=== PATIENT | female | born 1970 | race Caucasian/White ===

== ENCOUNTER 2023-08-11 15:46 | Emergency (ER) | payer OTHER ==
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
[2023-08-11] MEDS ORDERED: MORPHINE 4 MG/ML SYR ONE (17:19)
[2023-08-11] MEDS ORDERED: PROMETHAZINE 25 MG TABLET ONE (17:19)
--- NOTE | 2023-08-11 17:20 | RAD REPORT ---
EXAM DESCRIPTION: RAD - Forearm Left - 08/11/2023 4:58 pm CLINICAL HISTORY: PAIN COMPARISON: No comparisons TECHNIQUE: Left forearm, single-view. FINDINGS: No fracture is identified. There is no dislocation or periosteal reaction noted. Mild degenerative changes at the thumb base. Reactive screw hardware fixation of the ulna. The most distal screw is not fully inserted into the julio c ne, with no appreciable distal tract. Acuity of this finding cannot be determined. No foreign body or other soft tissue abnormality. Evaluation for elbow joint effusions is limited i n the absence of a lateral view. IMPRESSION: No acute osseous abnormality. Findings as above.
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
[2023-08-11] MEDS ORDERED: cloNIDine HCL 0.1 MG TAB ONE (18:21)
[2023-08-11 21:14] VITALS: TEMP 98.1; O2SAT 96
[2023-08-11 21:15] VITALS: BP 185/111
== END 2023-08-11 18:41 | disposition home or self-care (01) ==
LOC: ER 15:46
DX: S40.012A Contusion of left shoulder, initial encounter (principal); S60.212A Contusion of left wrist, initial encounter; V49.49XA Driver injured in collision with other motor vehicles in traffic accident, initial encounter; I10 Essential (primary) hypertension; F17.210 Nicotine dependence, cigarettes, uncomplicated; Z88.6 Allergy status to analgesic agent
CPT/HCPCS: 71046; 73090; 96372; 99284; Q0169

== ENCOUNTER 2025-04-14 14:02 | Emergency (ER) | payer SELFPAY ==
[2025-04-14] MEDS ORDERED: NA CHLORIDE 0.9% 1,000 ML ONE ×2 (16:27→19:21)
[2025-04-14] MEDS ORDERED: ONDANSETRON 4 MG/2 ML VIAL ONE (16:27)
[2025-04-14] MEDS ORDERED: MORPHINE 4 MG/ML SYR ONE (16:27)
[2025-04-14] MEDS ORDERED: FAMOTIDINE 20 MG/2 ML VIAL IV ONE (16:27)
[2025-04-14 16:59] LABS: Absolute Basophils 0.1 K/uL (0-0.5); Absolute Eosinophils 0.2 K/uL (0-0.5); Absolute Lymphocytes (CBC) 3.2 K/uL (0.7-4.9); Absolute Monocytes 1.1 K/uL (0.1-1.3); Absolute Neutrophil 7.9 K/uL (1.8-8.0); Basophils % 0.7 % (0-1.3); Eosinophils % 1.4 % (0-4.4); Hematocrit 39.2 % (36.0-45.0); Hemoglobin 13.6 g/dL (12.0-15.0); Lymphocytes % 25.8 % (15.3-44.8); MCHC 34.7 g/dL (32.0-36.0); MCV 92.2 fL (80-100); MPV 8.2 fL (7.6-11.3); Monocytes % 8.9 % (3.3-12.3); Neutrophils % 63.2 % (41.7-73.7); Nucleated Red Blood Cells % 0.1 % (0-0); Platelets 416 thou/uL (152-406); RBC Red Blood Cell Count 4.25 M/uL (3.86-4.86); Red Cell Distribution Width 13.4 % (12.1-15.2)
[2025-04-14 17:07] LABS: Specific Gravity 1.023 (1.005-1.030); Urine Bacteria None Seen /HPF (<20); Urine Bilirubin 1+ (Negative); Urine Blood Trace (Negative); Urine Clarity Extremely Turbid (Clear); Urine Color Yellow (Yellow); Urine Culture Reflex Order NOT NEEDED; Urine Glucose NEGATIVE (Negative); Urine Ketones 1+ (Negative); Urine Microscopic Reflex YN ORDER UMIC; Urine Mucus 4+ /HPF (None Seen); Urine Nitrite NEGATIVE (Negative); Urine Protein TRACE (Negative); Urine RBC <5 /HPF (None Seen); Urine Urobilinogen 1+ (Normal); Urine Yeast (Budding) Trace /HPF (None Seen); Urine pH 5.5 (5.0-7.0)
[2025-04-14 17:15] LABS: Albumin 4.2 g/dL (3.4-5.0); Anion Gap 12.5 mEq/L (5.0-15.0); Bilirubin Total 0.5 mg/dL (0.2-1.0); Globulin 4.2 g/dL (2.3-3.5); Potassium 3.5 mEq/L (3.5-5.1); Protein, Total 8.4 g/dL (6.4-8.2)
--- NOTE | 2025-04-14 18:37 | RAD REPORT ---
EXAMINATION: CT Abdomen Pelvis W Contrast CLINICAL INDICATION: Female, 54 years old. ABD PAIN TECHNIQUE: CT abdomen and pelvis was performed, after the administration of IV contrast, as per [facility] protocol. Axial, sagittal and coronal reconstructions were obtained. One or more of the following dose reduction techniques were used: Automated exposure control, adjustment of the mA and k V according to patient size, and iterative reconstruction. Unless otherwise specified, incidental findings do not require dedicated imaging follow-up. COMPARISON: No prior exam. FINDINGS: LOWER CHEST: The visualized lung bases are clear. LIVER: Normal in size and contour. No focal lesion. BILIARY SYSTEM: No suspicious abnormalities. SPLEEN: Normal size. No focal lesion. PANCREAS: No mass, ductal dilation, or helena-pancreatic fluid. ADRENALS: Bilateral nodular adrenal thickening, with right adrenal largest nodule measuring 2.9 x 1.6 cm. KIDNEYS: Normal size and contour. No hydronephrosis. URINARY BLADDER: Unremarkable. GASTROINTESTINAL TRACT: No evidence of free air, significant intra-abdominal free fluid, bowel obstru ction or abscess. Fluid opacification throughout most of the colon and long segments of small bowel, nonspecific APPENDIX: Appendix not visualized, but no inflammatory changes in region of appendix. LYMPH NODES: No lymphadenopathy. MUSCULOSKELETAL: No acute or suspicious osseous abnormality. ADDITIONAL FINDINGS: Retroverted uterus. IMPRESSION: Nonspecific fluid opacification throughout most of the colon and long segments of small bowel, may price ggest diarrheal state. Bilateral adrenal nodular thickening with largest nodule on the right measuring up to 2.9 cm. These a re not well characterized, but appear new or enlarged since the prior CT. They can be further characterized by adrenal protocol MRI or CT. Other incidental findings as above.
--- NOTE | 2025-04-14 18:56 | RAD REPORT ---
EXAMINATION: US Abdomen Exam Limited CLINICAL HISTORY: [facility] Y ABD PAIN Bed Name: 6 COMPARISON: None. TECHNIQUE: Limited upper abdominal grayscale and color flow sonographic images. FINDINGS: Gallbladder: No wall thickening or pericholecystic fluid. No gallstones. Bile ducts: No intrahepatic or extrahepatic biliary dilatation. Common bile duct measures 3 mm. Liver: Visualized portions of the liver demonstrate normal echogenicity with no suspicious findings. Fluid: No ascites. IMPRESSION: No abnormalities on right upper quadrant ultrasound.
--- NOTE | 2025-04-14 19:12 | EDPHYS ---
Physician Documentation [facility] Name: Sandee Roberts Age: 54 yrs Sex: Female : 1970 Arrival Date: 04/14/2025 Time: 14:02 Bed 8 Private MD: MARILYN Physician Ajit Sen HPI: 04/14 19:01 This 54 yrs old Female presents to ER via Ambulatory with complaints of kaushik Abdominal Pain, Nausea/Vomiting. 19:01 The patient presents to the emergency department with nausea, vomiting, diarrhea, kaushik abdominal pain, of the right upper quadrant, left upper quadrant, right lower quadrant and left lower quadrant. Onset: The symptoms/episode began/occurred 3 day(s) ago. 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 - Infectious Disease History:: Denies. - Social history:: Smoking status: Patient reports the use of cigarette tobacco products, smokes one-half pack cigarettes per day. ROS: 19:03 Constitutional: Negative for fever, chills, and weight loss, Eyes: Negative for injury, kaushik pain, redness, and discharge, ENT: Negative for injury, pain, and discharge, Neck: Negative for injury, pain, and swelling, Cardiovascular: Negative for chest pain, palpitations, and edema, Respiratory: Negative for shortness of breath, cough, wheezing, and pleuritic chest pain, Back: Negative for injury and pain, : Negative for injury, bleeding, discharge, and swelling, MS/Extremity: Negative for injury and deformity, Skin: Negative for injury, rash, and discoloration, Neuro: Negative for headache, weakness, numbness, tingling, and seizure, Psych: Negative for depression, anxiety, suicide ideation, homicidal ideation, and hallucinations, Allergy/Immunology: Negative for hives, rash, and allergies, Endocrine: Negative for neck swelling, polydipsia, polyuria, polyphagia, and marked weight changes, Hematologic/Lymphatic: Negative for swollen nodes, abnormal bleeding, and unusual bruising, 19:03 Abdomen/GI: Positive for abdominal pain, nausea and vomiting, diarrhea, Exam: 19:03 Constitutional: This is a well developed, well nourished patient who is awake, alert, kaushik and in no acute distress. Head/Face: Normocephalic, atraumatic. Eyes: Pupils equal round and reactive to light, extra-ocular motions intact. Lids and lashes normal. Conjunctiva and sclera are non-icteric and not injected. Cornea within normal limits. Periorbital areas with no swelling, redness, or edema. ENT: Nares patent. No nasal discharge, no septal abnormalities noted. Tympanic membranes are normal and external auditory canals are clear. Oropharynx with no redness, swelling, or masses, exudates, or evidence of obstruction, uvula midline. Mucous membranes moist. Neck: Trachea midline, no thyromegaly or masses palpated, and no cervical lymphadenopathy. Supple, full range of motion without nuchal rigidity, or vertebral point tenderness. No Meningismus. Chest/axilla: Normal chest wall appearance and motion. Nontender with no deformity. No lesions are appreciated. Cardiovascular: Regular rate and rhythm with a normal S1 and S2. No gallops, murmurs, or rubs. Normal PMI, no JVD. No pulse deficits. Respiratory: Lungs have equal breath sounds bilaterally, clear to auscultation and percussion. No rales, rhonchi or wheezes noted. No increased work of breathing, no retractions or nasal flaring. Back: No spinal tenderness. No costovertebral tenderness. Full range of motion. Female : Normal external genitalia. Skin: Warm, dry with normal turgor. Normal color with no rashes, no lesions, and no evidence of cellulitis. MS/ Extremity: Pulses equal, no cyanosis. Neurovascular intact. Full, normal range of motion., bilateral aka Neuro: Awake and alert, GCS 15, oriented to person, place, time, and situation. Cranial nerves II-XII grossly intact. Motor strength 5/5 in all extremities. Sensory grossly intact. Cerebellar exam normal. Normal gait. Psych: Awake, alert, with orientation to person, place and time. Behavior, mood, and affect are within normal limits. 19:03 Abdomen/GI: Inspection: abdomen appears normal, Bowel sounds: active, Palpation: mild abdominal tenderness, in all quadrants, Liver: no appreciated palpable abnormalities, Hernia: not appreciated, Vital Signs: 14:11 BP 171 / 113; Pulse 115; Resp 18; Temp 98.33; Pulse Ox 98% ; Weight 61.23 kg; Height 5 me1 ft. 3 in. ; Pain 3/10; 17:18 BP 162 / 101; Pulse 80; Resp 16; Pulse Ox 100% ; bp 18:56 BP 161 / 110; Pulse 73; Resp 16; Pulse Ox 99% ; bp 20:43 BP 160 / 111; Pulse 86; Resp 18; Pulse Ox 98% ; km10 14:11 Body Mass Index 23.91 (61.23 kg, 160.02 cm) me1 14:11 Pain Scale: Adult me1 MDM: 14:16 Medical Screening Exam initiated kaushik 19:04 Differential diagnosis: Nonspecific abd pain, gastritis, cholecystitis, pancreatitis, kaushik diverticulitis, viral gastroenteritis, gastroenteritis. Data reviewed: vital signs, nurses notes, lab test result(s), EKG, radiologic studies, CT scan, ultrasound. Consideration of Admission/Observation Escalation of care including admission/observation considered. I considered the following discharge prescriptions or medication management in the emergency department Medications were administered in the Emergency Department. See MAR. Independent interpretation of the following test(s) in the Emergency Department CT Scan: My interpretation is ct abd / pel / usg. Test considered but Not performed: MRI: no mrcp. Care significantly affected by the following chronic conditions: Diabetes, Hypertension, bipolar. 04/14 14:18 Order name: CBC with Diff; Complete Time: 18:54 kaushik 04/14 14:18 Order name: CMP; Complete Time: 18:54 kaushik 04/14 14:18 Order name: Lipase; Complete Time: 18:54 kaushik 04/14 16:48 Order name: UA Rfx Evan Cult if indicated; Complete Time: 18:54 bp 04/14 14:18 Order name: Abdomen Limited US; Complete Time: 18:56 kaushik 04/14 14:18 Order name: CT Abd/Pelvis - IV Contrast Only; Complete Time: 18:54 kaushik 04/14 14:18 Order name: IV Saline Lock; Complete Time: 16:48 kaushik 04/14 14:18 Order name: Labs collected and sent; Complete Time: 16:48 kaushik 04/14 19:00 Order name: Misc. Order: ok to take home meds; Complete Time: 20:34 kaushik Administered Medications: 16:48 Drug: Famotidine IVP 20 mg IVP once; dilute with 10 mL 0.9% NaCl; give over 2 minutes bp Route: IVP; Site: right antecubital; 20:35 Follow up: Response: No adverse reaction bm8 16:48 Drug: Ondansetron IVP 4 mg IVP once; over 2 minutes Route: IVP; Site: right antecubital;bp 20:36 Follow up: Response: No adverse reaction bm8 16:48 Drug: morphine IVP or IV 4 mg IVP once over 4 mins Route: IVP; Infused Over: 4 mins; bp Site: right antecubital; 20:36 Follow up: Response: No adverse reaction bm8 16:48 Drug: NS 0.9% IV 1000 ml IV at 1 bolus Per protocol; to be given as a bolus over 60 bp minutes Route: IV; Rate: 1 bolus; Site: right antecubital; 20:36 Follow up: Response: No adverse reaction; IV Status: Completed infusion bm8 19:41 Drug: Rocephin IV 1 grams IV at per protocol once; Given slow IV push per pharmacy bp instructions Route: IV; Rate: per protocol; Site: right antecubital; 20:35 Follow up: Response: No adverse reaction; IV Status: Completed infusion bm8 19:41 Drug: NS 0.9% IV 1000 ml IV at 1000 ml once; to be given as a bolus over 60 minutes bp Route: IV; Rate: 1000 ml; Site: right antecubital; 20:35 Follow up: Response: No adverse reaction; IV Status: Completed infusion bm8 20:35 Follow up: Response: No adverse reaction; IV Status: Completed infusion bm8 19:57 Drug: Promethazine IM 25 mg IM once; to iv fluid Route: IM; Site: left gluteus; bm8 20:34 Follow up: Response: No adverse reaction bm8 Disposition Summary: 04/14/25 19:12 Discharge Ordered Notes: Location: Home kaushik Problem: new kaushik Symptoms: have improved kaushik Condition: Stable kaushik Diagnosis - Abdominal pain, Generalized kaushik - Vomiting kaushik - Diarrhea, unspecified kaushik - UTI/ Urinary tract infection, site not specified kaushik - Essential (primary) hypertension kaushik Followup: kaushik - With: Private Physician - When: 2 - 3 days - Reason: Recheck today's complaints, Continuance of care, Re-evaluation by your physician Followup: kaushik - With: Netta De La Paz MD - When: 2 - 3 days - Reason: Recheck today's complaints, Continuance of care, Re-evaluation by your physician Discharge Instructions: - Discharge Summary Sheet kaushik - Abdominal Pain, Adult kaushik - Food Choices to Help Relieve Diarrhea, Adult kaushik - Hypertension, Adult kaushik - Urinary Tract Infection, Adult kaushik - Urinary Tract Infection, Adult, [id number] kaushik - Abdominal Pain, Adult, [id number] kaushik - Hypertension, Adult, [id number] kaushik - How to Take Your Blood Pressure, [id number] kaushik - Managing Your Hypertension kaushik - Vomiting, Adult [facility] Forms: - Medication Reconciliation Form kaushik - Antibiotic Education kaushik - Prescription Opioid Use kaushik - Patient Portal Instructions [facility] - Leadership Thank You Letter [facility] Prescriptions: - ondansetron 4 mg Oral Tablet,disintegrating - take 1 tablet ORAL route every 6 hours as needed for nausea and vomiting; 20 kaushik tablet; Refills: 0, Product Selection Permitted - Cipro 250 mg Oral tablet - take 1 tablet ORAL route every 12 hours; 14 tablet; Refills: 0, Product kaushik Selection Permitted - promethazine 25 mg Oral tablet - take 1 tablet ORAL route every 6 hours As needed prn intractable kaushik nausea/vomiting; 15 tablet; Refills: 0, Product Selection Permitted - dicyclomine 20 mg Oral tablet - take 1 tablet ORAL route 4 times per day; 28 tablet; Refills: 0, Product kaushik Selection Permitted Signatures: Dispatcher [employer] Ajit Pinzon MD MD cha Peltier, Brian, RN ALEX bp Camila Mata RN RN me1 Zoran Gauthier RN RN bm8 Corrections: (The following items were deleted from the chart) 14:18 14:18 CBC+H.LAB.BRZ ordered. EDMS EDMS 14:18 14:18 COMPREHENSIVE METABOLIC PANEL+C.LAB.BRZ ordered. EDMS EDMS 14:18 14:18 LIPASE+C.LAB.BRZ ordered. EDMS EDMS 14:18 14:18 Abdomen Limited+US.RAD.BRZ ordered. EDMS EDMS 14:18 14:18 Abdomen Pelvis W Con+CT.RAD.BRZ ordered. EDMS EDMS
--- NOTE | 2025-04-14 19:12 | ER ---
Nurse's Notes [facility] Name: Sandee Roberts Age: 54 yrs Sex: Female : 1970 Arrival Date: 04/14/2025 Time: 14:02 Bed 8 Private MD: Diagnosis: Abdominal pain, Generalized;Vomiting;Diarrhea, unspecified;UTI/ Urinary tract infection, site not specified;Essential (primary) hypertension Presentation: 04/14 14:11 Chief complaint: Patient states: n/v/d that started on Tuesday with abdominal cramps me1 that are worse with even a sip of water. Pain /. Unable to keep fluid down since Tuesday. Decreased urine output. Unable to take daily meds. Coronavirus screen: Vaccine status: Patient reports being unvaccinated. Ebola Screen: No symptoms or risks identified at this time. Initial Sepsis Screen: Does the patient meet any 2 criteria? HR > 90 bpm. Does the patient have a suspected source of infection? No. Patient's initial sepsis screen is negative. Risk Assessment: Do you want to hurt yourself or someone else? Patient reports no desire to harm self or others. Onset of symptoms was April 10, 2025. 14:11 Method Of Arrival: Ambulatory [facility] [place] 14:11 Acuity: BRANDAN 3 me1 Triage Assessment: 14:30 General: Appears in no apparent distress. Behavior is cooperative, appropriate for age, bp anxious. Pain: Complains of pain in abdomen. EENT: No deficits noted. Neuro: No deficits noted. Cardiovascular: No deficits noted. Respiratory: No deficits noted. GI: Abdomen is non-distended. : No signs and/or symptoms were reported regarding the genitourinary system. Derm: No deficits noted. Musculoskeletal: No deficits noted. 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 - Infectious Disease History:: Denies. - Social history:: Smoking status: Patient reports the use of cigarette tobacco products, smokes one-half pack cigarettes per day. Screenin:00 [facility] ED Fall Risk Assessment (Adult) History of falling in the last 3 months, bp including since admission No falls in past 3 months (0 pts) Confusion or Disorientation No (0 pts) Intoxicated or Sedated No (0 pts) Impaired Gait No (0 pts) Mobility Assist Device Used No (0 pt) Altered Elimination No (0 pt) Score/Fall Risk Level 0 - 2 = Low Risk Oriented to surroundings. Abuse screen: Denies threats or abuse. Denies injuries from another. Nutritional screening: No deficits noted. Tuberculosis screening: No symptoms or risk factors identified. Assessment: 14:30 General: Appears in no apparent distress. uncomfortable, Behavior is cooperative, bp appropriate for age, anxious. 16:30 Reassessment: No changes from previously documented assessment. Patient is alert, bp oriented x 3, equal unlabored respirations, skin warm/dry/pink. 18:30 Reassessment: No changes from previously documented assessment. Patient is alert, bp oriented x 3, equal unlabored respirations, skin warm/dry/pink. 20:42 Reassessment: Patient appears in no apparent distress at this time. Patient states km10 feeling better. Vital Signs: 14:11 BP 171 / 113; Pulse 115; Resp 18; Temp 98.33; Pulse Ox 98% ; Weight 61.23 kg; Height 5 me1 ft. 3 in. ; Pain 3/10; 17:18 BP 162 / 101; Pulse 80; Resp 16; Pulse Ox 100% ; bp 18:56 BP 161 / 110; Pulse 73; Resp 16; Pulse Ox 99% ; bp 20:43 BP 160 / 111; Pulse 86; Resp 18; Pulse Ox 98% ; km10 14:11 Body Mass Index 23.91 (61.23 kg, 160.02 cm) me1 14:11 Pain Scale: Adult il1 ED Course: 14:08 Patient arrived in ED. im 14:16 Triage completed. me1 14:16 Ajit Sen MD is Attending Physician. [facility] 14:16 Arm band placed on Patient placed in waiting room. me1 15:42 Radiology exam delayed due to lab results not completed at this time. (BUN/Creatinine) sm9 IV insertion attempt and/or patient not having appropriate IV at this time. 16:07 Gallito Tapia, RN is Primary Nurse. bp 16:48 Initial lab(s) drawn, by me, sent to lab. Urine collected: clean catch specimen, clear. bp Inserted saline lock: 22 gauge in right forearm, using aseptic technique. Blood collected. Flushed with 10 mL NS. 17:00 Patient has correct armband on for positive identification. bp 17:48 Abdomen Limited US In Process Unspecified. EDMS 17:50 CT Abd/Pelvis - IV Contrast Only In Process Unspecified. EDMS 19:12 Netta De La Paz MD is Referral Physician. kaushik 20:42 IV discontinued, intact, bleeding controlled, No redness/swelling at site. Pressure km10 dressing applied. Administered Medications: 16:48 Drug: Famotidine IVP 20 mg IVP once; dilute with 10 mL 0.9% NaCl; give over 2 minutes bp Route: IVP; Site: right antecubital; 20:35 Follow up: Response: No adverse reaction bm8 16:48 Drug: Ondansetron IVP 4 mg IVP once; over 2 minutes Route: IVP; Site: right antecubital;bp 20:36 Follow up: Response: No adverse reaction bm8 16:48 Drug: morphine IVP or IV 4 mg IVP once over 4 mins Route: IVP; Infused Over: 4 mins; bp Site: right antecubital; 20:36 Follow up: Response: No adverse reaction bm8 16:48 Drug: NS 0.9% IV 1000 ml IV at 1 bolus Per protocol; to be given as a bolus over 60 bp minutes Route: IV; Rate: 1 bolus; Site: right antecubital; 20:36 Follow up: Response: No adverse reaction; IV Status: Completed infusion bm8 19:41 Drug: Rocephin IV 1 grams IV at per protocol once; Given slow IV push per pharmacy bp instructions Route: IV; Rate: per protocol; Site: right antecubital; 20:35 Follow up: Response: No adverse reaction; IV Status: Completed infusion bm8 19:41 Drug: NS 0.9% IV 1000 ml IV at 1000 ml once; to be given as a bolus over 60 minutes bp Route: IV; Rate: 1000 ml; Site: right antecubital; 20:35 Follow up: Response: No adverse reaction; IV Status: Completed infusion bm8 20:35 Follow up: Response: No adverse reaction; IV Status: Completed infusion bm8 19:57 Drug: Promethazine IM 25 mg IM once; to iv fluid Route: IM; Site: left gluteus; bm8 20:34 Follow up: Response: No adverse reaction bm8 Outcome: 19:12 Discharge ordered by MD. faulkner 20:43 Discharged to home ambulatory, with family, km10 20:43 Condition: stable 20:43 Discharge instructions given to patient, Instructed on discharge instructions, follow up and referral plans. medication usage, Demonstrated understanding of instructions, follow-up care, medications, Prescriptions given X 4, 20:43 Patient left the ED. km10 Signatures: Dispatcher [employer] EDAjit Lozada MD MD cha Peltier, Brian, RN RN bp Awilda Brownlee Michelle, RN RN me1 Sravanthi Jack 9 Zoran Gauthier, RN RN bm8 Thania Watson, RN RN km10
[2025-04-14] MEDS ORDERED: CEFTRIAXONE 1000 MG/VIAL ONE (19:20)
[2025-04-14] MEDS ORDERED: PROMETHAZINE INJ 25 MG/ML AMP ONE (19:21)
[2025-04-14 21:22] VITALS: BP 160/111; O2SAT 98
== END 2025-04-14 20:43 | disposition home or self-care (01) ==
LOC: ER 14:02
DX: N39.0 Urinary tract infection, site not specified (principal); R11.10 Vomiting, unspecified; R19.7 Diarrhea, unspecified; I10 Essential (primary) hypertension; F17.210 Nicotine dependence, cigarettes, uncomplicated
CPT/HCPCS: 36415; 74177; 76705; 80053; 81001; 83690; 85025; 96361; 96365; 96372; 96375; 99284; J0696; J2405; J2550; J7030; Q9967